=== PATIENT | female | born 1945 | race Hispanic/Latino ===

== ENCOUNTER 2017-05-09 18:00 | Emergency (ER) | payer MEDICARE ==
[2017-05-09 18:53] VITALS: BP 142/85
[2017-05-09 19:19] LABS: Basophils % (Auto) 0.4 % (0.0-1.8); Eosinophils % (Auto) 0.3 % (0.0-4.3); Hematocrit 38.4 % (30.3-42.9); Hemoglobin 13.1 gm/dl (10.1-14.3); Mean Corpuscular HGB Conc 34 % (30-34); Mean Corpuscular Hemoglobin 32 pg (28-32); Mean Corpuscular Volume 95 fl (79-97); Platelet Count 466 K/mm3 (140-440); Red Blood Count 4.04 M/mm3 (3.65-5.03); Red Cell Distribution Width 13.2 % (13.2-15.2); White Blood Count 10.4 K/mm3 (4.5-11.0)
[2017-05-09 19:36] LABS: Alanine Aminotransferase 26 units/L (7-56); Albumin 3.9 g/dL (3.9-5); Albumin/Globulin Ratio 1.2 %; Alkaline Phosphatase 72 units/L (35-129); Anion Gap 18 mmol/L; Blood Urea Nitrogen 21 mg/dL (7-17); Calcium 9.4 mg/dL (8.4-10.2); Carbon Dioxide 29 mmol/L (22-30); Chloride 101.3 mmol/L (98-107); Glucose 112 mg/dL (65-100); Lipase 35 units/L (13-60); Potassium 4.2 mmol/L (3.6-5.0); Sodium 144 mmol/L (137-145); Total Protein 7.1 g/dL (6.3-8.2)
[2017-05-09 19:42] LABS: Bilirubin,Urine NEG (Negative); Blood,Urine NEG (Negative); Ketones,Urine TR mg/dL (Negative); Leukocyte Esterase,Urine NEG (Negative); Nitrite,Urine NEG (Negative)
--- NOTE | 2017-05-09 20:23 | Cat Scan Report ---
FINAL REPORT EXAM: CT ABDOMEN PELVIS WO CON HISTORY: abd pain TECHNIQUE: Serial axial images through the abdomen and pelvis with coronal and sagittal reconstruction. PRIORS: None. FINDINGS: No focal consolidations are seen in the lung bases. No pleural effusion is seen. There is focal fatty infiltration in the anterior aspect of liver. Gallbladder appears normal. Pancreas appears normal. Spleen appears normal. There is a 14 millimeter nodule in the left adrenal gland with Hounsfield units measuring 7. There is a 5 millimeter calculus in the left renal collecting system. Multiple cysts are seen in the left kidney. There are additional foci of relative hypo and hyperdensity in the renal cortex, bilaterally, measuring less than a centimeter in size. Aorta is normal in caliber. Hyperdensity is noted in the dependent portion of the bladder. Uterus is absent. There is a 2.9 centimeter right ovarian cyst. There is a moderate amount of stool in the distal colon. Scattered diverticula are seen arising from the colon. There is not evidence of bowel obstruction at this time. No free fluid. Degenerative changes are seen in the spine. There is grade 1 anterolisthesis of L5 on S1. IMPRESSION: 1. Moderate amount of stool is noted in the rectal vault. 2. Diverticulosis. 3. No free fluid or inflammatory changes are seen in the abdomen or pelvis. 4. There is a 2.9 centimeter right ovarian cyst. Follow-up is recommended to assure stability. 5. Renal cysts are noted in the left renal cortex. There are additional foci of relative hyper and hypodensity in the kidneys which are too small to definitely characterize, but may represent cysts as well. These can also be reassessed at follow-up. 6. Nonobstructing calcification is noted in the left renal pelvis.
--- NOTE | 2017-05-09 20:28 | Emergency Department Report ---
ED General Adult HPI - General Chief complaint: Abdominal Pain Stated complaint: CONSTIPATION Time Seen by Provider: 05/09/17 19:35 Source: patient, EMS (ems notes not available at time of chart dictation), RN notes reviewed Mode of arrival: Stretcher Limitations: Other (patient is a poor historian) - History of Present Illness Initial comments: This is a 71-year-old female. She is previously unknown to me. She comes to the ER from a local psychiatric facility because of depression, not eating anything and constipation. The patient is a poor historian, she complains of abdominal pain, but cannot describe exacerbating or relieving factors. Patient does indicate that she is not having headache, neck pain, chest pain, and denies irritative and obstructive urinary symptoms. Patient also has a past medical history of depression. Patient is on a number of medications which do have constipation as a side effect, including Zoloft, Seroquel, Namenda. While in the ER, the patient had a bowel movement, as per verbal report from the nurse. -: unknown Quality: other (per hpi) Consistency: other (per hpi) Improves with: other (per hpi) Worsens with: other (per hpi) Associated Symptoms: other (per hpi) - Related Data Previous Rx's Medication Instructions Recorded Last Taken Type Na Phos,M-B/Na Phos,Di-Ba [Fleet 118 ml RC QHS PRN #5 enema 05/09/17 Unknown Rx Enema] Allergies Allergy/AdvReac Type Severity Reaction Status Date / Time No Known Allergies Allergy Unverified 05/09/17 18:55 ED Review of Systems ROS: Stated complaint: CONSTIPATION Other details as noted in HPI Constitutional: denies: fever Eyes: denies: eye discharge ENT: denies: epistaxis Respiratory: denies: cough Cardiovascular: denies: chest pain Gastrointestinal: abdominal pain, constipation Genitourinary: as per HPI, dysuria Skin: as per HPI Neurological: as per HPI Psychiatric: anxiety, depression ED Past Medical Hx - Past Medical History Previous Medical History?: Yes Hx Hypertension: Yes Hx Dementia: Yes Additional medical history: Psychosis - Social History Smoking Status: Unknown if ever smoked - Medications Home Medications: Home Medications Medication Instructions Recorded Confirmed Last Taken Type Na Phos,M-B/Na Phos,Di-Ba [Fleet 118 ml RC QHS PRN #5 enema 05/09/17 Unknown Rx Enema] ED Physical Exam - General Limitations: Other (patient is poorly verbal, appears to be depressed. She is not very forthcoming historian) General appearance: alert, in no apparent distress - Head Head exam: Present: atraumatic, normocephalic - Eye Eye exam: Present: normal appearance, EOMI - ENT ENT exam: Present: normal exam, normal orophraynx, mucous membranes moist, normal external ear exam - Neck Neck exam: Present: normal inspection, full ROM. Absent: tenderness, meningismus - Respiratory Respiratory exam: Present: normal lung sounds bilaterally. Absent: respiratory distress, wheezes, rales, rhonchi, stridor, chest wall tenderness - Cardiovascular Cardiovascular Exam: Present: regular rate, normal rhythm, normal heart sounds. Absent: systolic murmur, diastolic murmur, rubs, gallop - GI/Abdominal GI/Abdominal exam: Present: soft, normal bowel sounds. Absent: distended, tenderness, guarding, rebound, rigid, pulsatile mass - Extremities Exam Extremities exam: Present: normal inspection, full ROM, normal capillary refill. Absent: pedal edema, joint swelling, calf tenderness - Back Exam Back exam: Present: normal inspection, full ROM. Absent: tenderness, CVA tenderness (R), CVA tenderness (L), muscle spasm, paraspinal tenderness, vertebral tenderness - Neurological Exam Neurological exam: Present: alert, other (Extraocular movements intact. Tongue midline. No facial droop. Facial sensation intact to light touch in the V1, V2 , V3 distribution bilaterally. 5 and 5 strength in 4 extremities.. Sensation is intact to light touch in 4 extremities.). Absent: motor sensory deficit - Psychiatric Psychiatric exam: Present: depressed, flat affect - Skin Skin exam: Present: warm, dry, intact, normal color. Absent: rash ED Course Vital Signs 05/09/17 05/09/17 05/09/17 18:46 19:15 19:21 Temperature 99.6 F Pulse Rate 91 H Respiratory 14 Rate Blood Pressure 142/85 O2 Sat by Pulse 95 97 93 Oximetry 05/09/17 05/09/17 19:25 19:46 Temperature 99.4 F Pulse Rate Respiratory 18 Rate Blood Pressure O2 Sat by Pulse Oximetry ED Medical Decision Making - Lab Data Result diagrams: 05/09/17 18:59 05/09/17 18:59 Vital Signs 05/09/17 05/09/17 05/09/17 18:46 19:15 19:21 Temperature 99.6 F Pulse Rate 91 H Respiratory 14 Rate Blood Pressure 142/85 O2 Sat by Pulse 95 97 93 Oximetry 05/09/17 05/09/17 19:25 19:46 Temperature 99.4 F Pulse Rate Respiratory 18 Rate Blood Pressure O2 Sat by Pulse Oximetry Labs 05/09/17 05/09/17 05/09/17 18:59 18:59 18:59 WBC 10.4 RBC 4.04 Hgb 13.1 Hct 38.4 MCV 95 MCH 32 MCHC 34 RDW 13.2 Plt Count 466 H Lymph % (Auto) 10.5 L [place] % (Auto) 6.2 Eos % (Auto) 0.3 Baso % (Auto) 0.4 Lymph # 1.1 L [place] # 0.6 Eos # 0.0 Baso # 0.0 Seg Neutrophils % 82.6 H Seg Neutrophils # 8.6 H Sodium 144 Potassium 4.2 Chloride 101.3 Carbon Dioxide 29 Anion Gap 18 BUN 21 H Creatinine 0.6 L Estimated GFR > 60 BUN/Creatinine Ratio 35.00 Glucose 112 H Calcium 9.4 Total Bilirubin 0.30 AST 24 ALT 26 Alkaline Phosphatase 72 Total Creatine Kinase 124 Total Protein 7.1 Albumin 3.9 Albumin/Globulin Ratio 1.2 Lipase 35 Urine Color Urine Turbidity Urine pH Ur Specific [place] Urine Protein Urine Glucose (UA) Urine Ketones Urine Blood Urine Nitrite Urine Bilirubin Urine Urobilinogen Ur Leukocyte Esterase Urine WBC (Auto) Urine RBC (Auto) 05/09/17 19:24 WBC RBC Hgb Hct MCV MCH MCHC RDW Plt Count Lymph % (Auto) [place] % (Auto) Eos % (Auto) Baso % (Auto) Lymph # [place] # Eos # Baso # Seg Neutrophils % Seg Neutrophils # Sodium Potassium Chloride Carbon Dioxide Anion Gap BUN Creatinine Estimated GFR BUN/Creatinine Ratio Glucose Calcium Total Bilirubin AST ALT Alkaline Phosphatase Total Creatine Kinase Total Protein Albumin Albumin/Globulin Ratio Lipase Urine Color Yellow Urine Turbidity Clear Urine pH 5.0 Ur Specific [place] 1.024 Urine Protein 30 mg/dl Urine Glucose (UA) Neg Urine Ketones Tr Urine Blood Neg Urine Nitrite Neg Urine Bilirubin Neg Urine Urobilinogen 2.0 Ur Leukocyte Esterase Neg Urine WBC (Auto) 3.0 Urine RBC (Auto) 15.0 - Radiology Data Radiology results: report reviewed, image reviewed Noncontrast CT scan of the abdomen and pelvis: 5 mm calculus noted in the left renal collecting system. Multiple cysts noted in the left kidney. Moderate amount of stool in the distal colon. Diverticula noted in the colon. 2.9 cm right ovarian cyst. No free fluid or inflammatory changes noted. Renal cysts noted incidentally.\ - Medical Decision Making Differential diagnosis: Dehydration, constipation, depression, incidental ovarian cyst, incidental renal cyst Assessment and plan: 71-year-old female with CT scan demonstrated constipation. The patient is afebrile, with reassuring vital signs, and did pass a partial bowel movement in the ER. She is not obstructed, and she is nontender. She is on a number of medications which may cause constipation as a side effect. I will recommend that she increase her water and fiber intake, psychiatry team may choose to change or discontinue the medications, and she will also be discharged with prescription for fleets enema. There does not appear to be any emergent condition at this time, and based on her history, physical exam findings, and passing stool in the ER, she does not require emergent disimpaction at this time. Critical care attestation.: If time is entered above; I have spent that time in minutes in the direct care of this critically ill patient, excluding procedure time. ED Disposition Clinical Impression: Constipation Disposition: [id number]/TX-65 PSY HOSP/PSY UNIT Is pt being admited?: No Does the pt Need Aspirin: No Condition: Stable Instructions: Constipation (ED), High Fiber Diet (ED) Additional Instructions: Patient should increase water consumption to 6-8 cups of water per day. The patient is on a number of medications which have constipation as a side effect, including Zoloft, Seroquel, Namenda. I recommend that the primary psychiatric team reevaluate the patient's locations, and consider Descalating or changing these medications to facilitate bowel movement passage. Patient should also consume plenty of fiber, vegetables. Patient can also have a fleets enema as directed. Please return to the ER right away with fevers, chills, chest pain, shortness of breath, intractable nausea or vomiting, confusion, inability to tolerate liquid feeds. The patient did have a CT scan today was demonstrated multiple incidental findings, including ovarian cyst on the right side, and renal cysts. Patient also was found to have a 5 mm stone in the left renal collecting system. The patient should follow-up with a primary care doctor regarding these incidental findings within the next month. Not following up and he recommended timeframe may result in an undiagnosed tumor/cancer/malignancy. The patient's primary care doctor should contact the medical records department to obtain medical records. Prescriptions: Na Phos,M-B/Na Phos,Di-Ba [Fleet Enema] 118 ml RC QHS PRN #5 enema PRN Reason: Constipation Referrals: LORI TANNER [Other] - 3-5 Days
== END 2017-05-10 01:30 ==
LOC: ED 18:00
DX: K59.00 Constipation, unspecified (principal); I10 Essential (primary) hypertension; F03.90 Unspecified dementia, unspecified severity, without behavioral disturbance, psychotic disturbance, mood disturbance, and anxiety; F29 Unspecified psychosis not due to a substance or known physiological condition
CPT/HCPCS: 36415; 74176; 80053; 81001; 82550; 83690; 85025